=== PATIENT | male | born 1980 | race American Indian/Alaskan Native ===

== ENCOUNTER 2016-03-30 13:54 | Emergency (ER) | payer OTHER ==
[2016-03-30] MEDS ORDERED: TORADOL IM ONE (18:26)
--- NOTE | 2016-03-30 18:29 | Emergency Department Report ---
ED Male HPI - General Chief complaint: Skin/Abscess/Foreign Body Stated complaint: PAINFUL BOILS, CANNOT WALK Time Seen by Provider: 03/30/16 18:24 Source: patient Mode of arrival: Ambulatory Limitations: No Limitations - History of Present Illness Initial comments: PtTre is a 35-year-old male presents to ED complaining of painful mass under his scrotum 1 week. Patient states he noticed a mass underneath his scrotum a week ago and states the masses gotten bigger and is tender to touch. Patient states this is second occurrence of the mass. Patient states it doesn't told he had a mass that was straining in the same region. Patient also admits of boil on his stomach underneath is umbilicus. Patient denies fever/chills/nausea/vomiting/abdominal pain/dysuria/penile discharge/testicular pain /shortness of breath or chest pain or any other problems - Related Data Previous Rx's Medication Instructions Recorded Last Taken Type Acetaminophen/Codeine [Tylenol #3] 1 tab PO Q6H PRN #12 tab 03/30/16 Unknown Rx Doxycycline [Vibramycin CAP] 100 mg PO Q12HR #14 capsule 03/30/16 Unknown Rx Allergies Allergy/AdvReac Type Severity Reaction Status Date / Time No Known Allergies Allergy Unverified 03/30/16 19:38 ED Review of Systems ROS: Stated complaint: PAINFUL BOILS, CANNOT WALK Other details as noted in HPI Constitutional: denies: chills, fever Eyes: denies: eye pain, eye discharge, vision change ENT: denies: ear pain, throat pain Respiratory: denies: cough, shortness of breath, wheezing Cardiovascular: denies: chest pain, palpitations Endocrine: no symptoms reported Gastrointestinal: denies: abdominal pain, nausea, vomiting, diarrhea Genitourinary: other (painful mass in scrotum area). denies: urgency, dysuria, frequency, hematuria, testicular pain, testicular mass Musculoskeletal: denies: back pain, joint swelling, arthralgia Skin: denies: rash, lesions Neurological: denies: headache, weakness, paresthesias Psychiatric: denies: anxiety, depression Hematological/Lymphatic: denies: easy bleeding, easy bruising ED Past Medical Hx - Past Medical History Previous Medical History?: No - Surgical History Past Surgical History?: No - Social History Smoking Status: Current Every Day Smoker Substance Use Type: Alcohol - Medications Home Medications: Home Medications Medication Instructions Recorded Confirmed Last Taken Type Acetaminophen/Codeine [Tylenol #3] 1 tab PO Q6H PRN #12 tab 03/30/16 Unknown Rx Doxycycline [Vibramycin CAP] 100 mg PO Q12HR #14 capsule 03/30/16 Unknown Rx ED Physical Exam - General Limitations: No Limitations General appearance: alert, in no apparent distress - Head Head exam: Present: atraumatic, normocephalic - Eye Eye exam: Present: normal appearance, PERRL, EOMI Pupils: Present: normal accommodation - ENT ENT exam: Present: normal exam, mucous membranes moist - Neck Neck exam: Present: normal inspection, full ROM. Absent: tenderness, lymphadenopathy, thyromegaly - Respiratory Respiratory exam: Present: normal lung sounds bilaterally. Absent: respiratory distress, wheezes, rales, rhonchi, stridor - Cardiovascular Cardiovascular Exam: Present: regular rate, normal rhythm. Absent: bradycardia , systolic murmur, diastolic murmur, rubs, gallop - GI/Abdominal GI/Abdominal exam: Present: soft, normal bowel sounds, other (1 cm boil with pus collection seen 4 cm below the umbilicus). Absent: distended, tenderness, guarding, rebound, rigid - Rectal Rectal exam: Present: deferred - Extremities Exam Extremities exam: Present: normal inspection, full ROM, normal capillary refill. Absent: tenderness, calf tenderness - Back Exam Back exam: Present: normal inspection, full ROM. Absent: tenderness, CVA tenderness (R), CVA tenderness (L), muscle spasm, paraspinal tenderness - Neurological Exam Neurological exam: Present: alert, oriented X3, CN II-XII intact, normal gait - Psychiatric Psychiatric exam: Present: normal affect, normal mood - Skin Skin exam: Present: warm, dry, intact, normal color. Absent: rash ED Course Vital Signs 03/30/16 03/30/16 03/30/16 15:47 19:32 20:38 Temperature 98.6 F Pulse Rate 81 Respiratory 16 20 20 Rate Blood Pressure 128/82 O2 Sat by Pulse 98 Oximetry ED Medical Decision Making - Medical Decision Making 35-year-old male presents with perineum abscess ED course: Patient received 60 mg IM of Toradol. The patient states he is to limit a lot of pain and Toradol did not work he states his pain level VIII out of 10. One tablet of [place] administered. Ultrasound of scrotum ordered. Ultrasound report shows hypogenic mass suggestive of inflammation or early abscess. Subsequent blood flow Discussed warm compresses to boil area on abdomen. Warm compress applied to the site while in ED. Boil came to head, no drainage. Discussed proper washing techniques. Discussed antibiotic therapy for infection. And medication for pain therapy. Discussed warm compresses times a day Discussed to follow up with primary care physician. pt states he understands a and will comply to follow instructions and follow-up with Critical care attestation.: If time is entered above; I have spent that time in minutes in the direct care of this critically ill patient, excluding procedure time. ED Disposition Clinical Impression: Abscess, perineum, Carbuncle, perineum Disposition: DISCHARGED TO HOME OR SELFCARE Is pt being admited?: No Does the pt Need Aspirin: No Condition: Stable Instructions: Abscess (ED) Prescriptions: Acetaminophen/Codeine [Tylenol #3] 1 tab PO Q6H PRN #12 tab PRN Reason: Pain RX: Doxycycline [Vibramycin CAP] 100 mg PO Q12HR #14 capsule Referrals: PRIMARY CAREMD [Primary Care Provider] - 3-5 Days GRISELDA GIFFORD MD [Staff Physician] - 3-5 Days TIFFANIE SLOAN MD [Referring] - 3-5 Days RUBEN VEGA MD [Referring] - 3-5 Days [facility] [Outside] - 3-5 Days [facility] [Outside] - 3-5 Days [facility] [Outside] - 3-5 Days Forms: Accompanied Note, Work/School Release Form(ED) Time of Disposition: 21:14
[2016-03-30] MEDS ORDERED: NORCO 10/325 PO ONE (20:34)
--- NOTE | 2016-03-30 21:05 | Ultrasound Report ---
FINAL REPORT PROCEDURE: US SCROTUM TECHNIQUE: Real-time lujan-scale and color flow Doppler sonography in multiple planes of the scrotum, testicles, and epididymes was performed. Velocity spectral waveform analysis Doppler imaging of the arterial inflow and venous outflow of the testicles was performed with image documentation. CPT 39506 and 28093 HISTORY: tender mass perineum region COMPARISON: No prior studies are available for comparison. FINDINGS: No images of the testicles were submitted. There is a hypoechoic irregular subcutaneous mass measuring 4 x 1.3 x 2.4 centimeters posterior to the scrotum/perineum. There is peripheral blood flow but no internal blood flow. This could be an area of inflammation, edema or early abscess. IMPRESSION: There is a hypoechoic irregular subcutaneous mass measuring 4 x 1.3 x 2.4 centimeters posterior to the scrotum/perineum. There is peripheral blood flow but no internal blood flow. This could be an area of inflammation, edema or early abscess.
[2016-03-30 21:26] VITALS: BP 120/78
== END 2016-03-30 21:35 | disposition home or self-care (01) ==
LOC: ED 13:54
DX: L02.215 Cutaneous abscess of perineum (principal); L02.235 Carbuncle of perineum; F17.200 Nicotine dependence, unspecified, uncomplicated
CPT/HCPCS: 76870; 96372; 99283; J1885

== ENCOUNTER 2016-07-11 23:30 | Emergency (ER) | payer BC ==
[2016-07-12] MEDS ORDERED: MOTRIN PO ONE (00:37)
[2016-07-12] MEDS ORDERED: MOTRIN ONE (00:38)
--- NOTE | 2016-07-12 05:32 | Emergency Department Report ---
HPI - General Chief Complaint: Dental/Oral Time Seen by Provider: 07/12/16 05:12 - HPI HPI: The patient is a 34-year-old male who presents to ED complaining of 10/10 pain in the right side of his mouth x 2 days . Patient states that the pain started 52days ago and has increased in severity over the last day. Patient states the pain is alleviated initially with pain medication but comes back. Patient states that it radiates towards ear. Patient describes a as a throbbing, pressure-like sensation. Patient states otherwise well and has no other complaints. Patient has had no fevers and no chills. No chest pain, no shortness of breath. No abdominal pain. No shortness of breath or recent trauma to the face. ED Past Medical Hx - Past Medical History Previous Medical History?: No - Surgical History Past Surgical History?: No - Social History Smoking Status: Current Every Day Smoker Substance Use Type: None - Medications Home Medications: Home Medications Medication Instructions Recorded Confirmed Last Taken Type Doxycycline [Vibramycin CAP] 100 mg PO Q12HR #14 capsule 03/30/16 Unknown Rx Acetaminophen/Codeine [Tylenol 1 tab PO Q6H PRN #12 tab 07/12/16 Unknown Rx /Codeine # 3 tab] Amoxicillin 500 mg PO BID #14 capsule 07/12/16 Unknown Rx ED Review of Systems ROS: Stated complaint: TOOTHACHE/EARACHE/HEADACHE Other details as noted in HPI Constitutional: denies: chills, fever Eyes: denies: eye pain, eye discharge, vision change ENT: dental pain. denies: ear pain, throat pain, hearing loss, epistaxis, congestion Respiratory: denies: cough, shortness of breath, wheezing Cardiovascular: denies: chest pain, palpitations Endocrine: no symptoms reported Gastrointestinal: denies: abdominal pain, nausea, diarrhea Genitourinary: denies: urgency, dysuria Musculoskeletal: denies: back pain, joint swelling, arthralgia Skin: denies: rash, lesions Neurological: denies: headache, weakness, paresthesias Psychiatric: denies: anxiety, depression Hematological/Lymphatic: denies: easy bleeding, easy bruising Physical Exam - Physical Exam Vital Signs: Vital Signs 07/12/16 00:31 Temperature 98.1 F Pulse Rate 88 Respiratory 18 Rate Blood Pressure 129/82 Blood Pressure 129/82 [Left] O2 Sat by Pulse 100 Oximetry Physical Exam: GENERAL: Alert and oriented x3, no apparent distress, Normal Gait, atraumatic. HEAD: Head is normocephalic and a-traumatic. EYES: Extra ocular muscles are intact. Pupils are equal, round, and reactive to light and accommodation. MOUTH:Mouth is well hydrated and without lesions. Tonsils nonerythematous or swollen, Uvula midline, Tongue not elevated. Mucous membranes are moist. Posterior pharynx clear, no exudate or lesions. Patent airways. No gingival enlargement, pain palpation to tooth #5. Dental caries seen on tooth 5 LUNGS: Symetrical with respiration, No wheezing, no rales or crackles, CTAB. HEART: S1, S2 present, regular rate and rhythm without murmur, no rubs, no gallops. SKIN: Warm and dry, No lesions, No ulceration or induration present. ED Course Vital Signs 07/12/16 00:31 Temperature 98.1 F Pulse Rate 88 Respiratory 18 Rate Blood Pressure 129/82 Blood Pressure 129/82 [Left] O2 Sat by Pulse 100 Oximetry ED Medical Decision Making - Medical Decision Making 36-year-old male presents with dental caries ED course: Constipation in for antibiotics. Discussed the patient to follow up with a dentist as referred. Vital signs are normal patient has no acute distress Patient understands instructions. He states he will follow-up. Critical care attestation.: If time is entered above; I have spent that time in minutes in the direct care of this critically ill patient, excluding procedure time. ED Disposition Clinical Impression: Toothache, Dental caries Disposition: DISCHARGED TO HOME OR SELFCARE Is pt being admited?: No Does the pt Need Aspirin: No Condition: Stable Instructions: Dental Caries (ED), Toothache (ED) Prescriptions: Acetaminophen/Codeine [Tylenol /Codeine # 3 tab] 1 tab PO Q6H PRN #12 tab PRN Reason: Pain Amoxicillin 500 mg PO BID #14 capsule Referrals: PRIMARY CARE, [Primary Care Provider] - 3-5 Days [facility] [Outside] - 3-5 Days Forms: Accompanied Note, Work/School Release Form(ED) Time of Disposition: 05:34
[2016-07-12 06:47] VITALS: BP 130/84
== END 2016-07-12 06:10 | disposition home or self-care (01) ==
LOC: ED 23:30
DX: K02.9 Dental caries, unspecified (principal); F17.200 Nicotine dependence, unspecified, uncomplicated
CPT/HCPCS: 99282

== ENCOUNTER 2016-07-18 23:56 | Emergency (ER) | payer BC ==
[2016-07-19] MEDS ORDERED: TYLENOL PO ONE (01:44)
--- NOTE | 2016-07-19 02:56 | Cat Scan Report ---
FINAL REPORT PROCEDURE: CT HEAD/BRAIN WO CON TECHNIQUE: Computerized tomography of the head was performed without contrast material. HISTORY: Fell down stairs and hit head COMPARISON: No prior studies are available for comparison. FINDINGS: Skull and scalp: Normal. Paranasal sinuses: Normal. Ventricles and subarachnoid spaces: Normal. Cerebrum: No evidence of hemorrhage, acute infarction or mass . Cerebellum and brainstem: No evidence of hemorrhage, acute infarction or mass. Vasculature: Normal. Comments: None. IMPRESSION: There is no evidence of an acute intracranial process.
--- NOTE | 2016-07-19 02:57 | Cat Scan Report ---
FINAL REPORT PROCEDURE: CT CERVICAL SPINE WO CON TECHNIQUE: Computerized tomography of the cervical spine was performed from the skull base to T1 without contrast material. HISTORY: Fell down stairs and hit head COMPARISON: No prior studies are available for comparison. FINDINGS: The alignment of the vertebral bodies is normal. The heights of the vertebral bodies and the disc spaces are maintained. No acute fracture or dislocation of the cervical spine. The spinal canal is adequate at all levels. IMPRESSION: There is no acute fracture or dislocation of the cervical spine..
[2016-07-19] MEDS ORDERED: MOTRIN PO ONE (05:40)
--- NOTE | 2016-07-19 05:40 | Emergency Department Report ---
ED Fall HPI - General Chief Complaint: Fall Stated Complaint: BACK PAIN Time Seen by Provider: 07/19/16 04:58 Source: patient Mode of arrival: Ambulatory - History of Present Illness MD Complaint: fall Onset/Timin -: days(s) - Related Data Previous Rx's Medication Instructions Recorded Last Taken Type Doxycycline [Vibramycin CAP] 100 mg PO Q12HR #14 capsule 03/30/16 Unknown Rx Acetaminophen/Codeine [Tylenol 1 tab PO Q6H PRN #12 tab 07/12/16 Unknown Rx /Codeine # 3 tab] Amoxicillin 500 mg PO BID #14 capsule 07/12/16 Unknown Rx Acetaminophen/Codeine [Tylenol 1 tab PO Q6H PRN #6 tab 07/19/16 Unknown Rx /Codeine # 3 tab] Naproxen [Naprosyn TAB] 500 mg PO BID PRN #20 tablet 07/19/16 Unknown Rx Allergies Allergy/AdvReac Type Severity Reaction Status Date / Time No Known Allergies Allergy Unverified 03/30/16 19:38 ED Review of Systems ROS: Stated complaint: BACK PAIN Other details as noted in HPI ED Past Medical Hx - Past Medical History Previous Medical History?: No - Social History Smoking Status: Current Every Day Smoker - Medications Home Medications: Home Medications Medication Instructions Recorded Confirmed Last Taken Type Doxycycline [Vibramycin CAP] 100 mg PO Q12HR #14 capsule 03/30/16 Unknown Rx Acetaminophen/Codeine [Tylenol 1 tab PO Q6H PRN #12 tab 07/12/16 Unknown Rx /Codeine # 3 tab] Amoxicillin 500 mg PO BID #14 capsule 07/12/16 Unknown Rx Acetaminophen/Codeine [Tylenol 1 tab PO Q6H PRN #6 tab 07/19/16 Unknown Rx /Codeine # 3 tab] Naproxen [Naprosyn TAB] 500 mg PO BID PRN #20 tablet 07/19/16 Unknown Rx ED Physical Exam - General Limitations: No Limitations ED Course Vital Signs 07/19/16 07/19/16 01:25 01:48 Temperature 98.8 F Pulse Rate 79 Respiratory 18 20 Rate Blood Pressure 119/72 O2 Sat by Pulse 97 Oximetry Critical care attestation.: If time is entered above; I have spent that time in minutes in the direct care of this critically ill patient, excluding procedure time. ED Disposition Clinical Impression: Multiple contusions Fall with injury Qualifiers: Encounter type: initial encounter Qualified Code(s): W19.XXXA - Unspecified fall, initial encounter Disposition: DC-01 TO HOME OR SELFCARE Is pt being admited?: No Does the pt Need Aspirin: No Condition: Stable Instructions: Scalp Contusion in Adults (ED), Contusion in Adults (ED), Fall Prevention (ED) Prescriptions: Acetaminophen/Codeine [Tylenol /Codeine # 3 tab] 1 tab PO Q6H PRN #6 tab PRN Reason: Pain Naproxen [Naprosyn TAB] 500 mg PO BID PRN #20 tablet PRN Reason: Pain Referrals: [facility] [Provider Group] - 3-5 Days Forms: Work/School Release Form(ED) Time of Disposition: 05:41
[2016-07-19 05:56] VITALS: BP 128/61
--- NOTE | 2016-07-19 09:51 | XRay Report ---
LUMBOSACRAL SPINE, 3 VIEWS: History: Back pain Findings: The vertebral bodies, disk spaces and posterior elements are intact. No compression deformity or malalignment. The SI joints are symmetric and unremarkable. Impression: 1. No evidence for acute injury to the lumbar spine.
== END 2016-07-19 05:56 | disposition home or self-care (01) ==
LOC: ED 23:56
DX: M54.9 Dorsalgia, unspecified (principal); S20.229A Contusion of unspecified back wall of thorax, initial encounter; S00.03XA Contusion of scalp, initial encounter; F17.200 Nicotine dependence, unspecified, uncomplicated; W18.39XA Other fall on same level, initial encounter; Y93.89 Activity, other specified; Y92.89 Other specified places as the place of occurrence of the external cause; Y99.8 Other external cause status
CPT/HCPCS: 70450; 72100; 72125